=== PATIENT | female | born 2000 | race Caucasian/White ===

== ENCOUNTER 2023-06-10 14:05 | Outpatient (CLI) | payer BC | END 2023-06-10 14:06 | disposition home or self-care (01) | LOC: BICMRI 14:05 | PROVIDERS: ATTEND Emergency Medicine | DX: M51.17 Intervertebral disc disorders with radiculopathy, lumbosacral region (principal); M51.26 Other intervertebral disc displacement, lumbar region | CPT/HCPCS: 72148 ==